=== PATIENT | male | born 1980 | race Caucasian/White ===

== ENCOUNTER 2018-09-06 13:19 | Observation (INO) | payer OTHER, BC ==
--- NOTE | 2018-09-06 14:33 | ER Document Report ---
ED Extremity Problem, Lower - General Chief Complaint: Knee Injury Stated Complaint: FALL/LEFT KNEE PAIN Time Seen by Provider: 09/06/18 14:06 Mode of Arrival: Medic Information source: Patient Notes: Patient is a 38-year-old male who comes emergency room by EMS complaining of left knee pain. Patient states he was coming off of a 3 foot high back back of the house he missed the first step and as he went down he felt his leg on the left side go up behind him heard a loud pop and went to the ground. Patient states he was unable to get up off the ground on his own power. He is unable to bear any weight on the left leg. The knee is not able to do any flexion or extension on its own. When he tries to stand he has no stability in the right leg at the knee joint. He denies any other injuries. TRAVEL OUTSIDE OF THE [place] IN LAST 30 DAYS: No - HPI Patient complains to provider of: Injury, Pain, Swelling Location: Knee Occurred: Just prior to arrival Where: Home Onset/Duration: Sudden, Constant Quality of pain: Sharp, Throbbing, Other - There is no pain while sitting with legs outstretched. Any type of movement pain goes to 3 out of 5 Severity: Moderate Pain Level: 3 Context: Twisted Recent injury: Yes Associated symptoms: Unable to bear weight Exacerbated by: Movement, Walking Relieved by: Elevation, Rest - Related Data Allergies/Adverse Reactions: No Known Allergies Allergy (Unverified 09/06/18 13:22) Past Medical History - General Information source: Patient - Social History Smoking Status: Never Smoker Cigarette use (# per day): No Chew tobacco use (# tins/day): No Smoking Education Provided: No Frequency of alcohol use: Rare Drug Abuse: None Lives with: Family Family History: Reviewed & Not Pertinent Review of Systems - Review of Systems Constitutional: No symptoms reported EENT: No symptoms reported Cardiovascular: No symptoms reported Respiratory: No symptoms reported Gastrointestinal: No symptoms reported Genitourinary: No symptoms reported Male Genitourinary: No symptoms reported Musculoskeletal: Joint pain, Joint swelling, Leg swelling Skin: No symptoms reported Hematologic/Lymphatic: No symptoms reported Neurological/Psychological: No symptoms reported -: Yes All other systems reviewed and negative Physical Exam - Vital signs Vitals: Temp Pulse Resp BP Pulse Ox 98.5 F 77 16 136/87 H 98 09/06/18 13:45 09/06/18 13:45 09/06/18 13:45 09/06/18 13:45 09/06/18 13:45 Interpretation: Hypertensive - Notes Notes: PHYSICAL EXAMINATION: GENERAL: Patient is a well-nourished well-developed 38-year-old male who is in no apparent distress on physical exam. Does appear uncomfortable with any type of movement. HEAD: Atraumatic, normocephalic. EYES: Pupils equal round and reactive to light, extraocular movements intact, sclera anicteric, conjunctiva are normal. NECK: Normal range of motion, supple without lymphadenopathy LUNGS: Breath sounds clear to auscultation bilaterally and equal. No wheezes rales or rhonchi. HEART: Regular rate and rhythm without murmurs Musculoskeletal: Examination of the area of concern is patient's left knee. On examination left knee is swollen in comparison to the right. Patient displays a good popliteal pulse as well as good distal pulses in the dorsalis pedis. Patient has flexion and extension of the ankle and total movement of toes. Patient is unable to extend his leg at all. Palpation of the knee itself feels like the patella is riding high into the thigh. Also moderate amount of effusion in the inferior portion of the cell. Unable to perform anterior drawer secondary to inability to flex the knee secondary to pain and swelling. NEUROLOGICAL: Normal speech, normal gait. Normal sensory, motor exams PSYCH: Normal mood, normal affect. SKIN: Warm, Dry, normal turgor, no rashes or lesions noted. Course - Re-evaluation Re-evalutation: 09/06/18 15:[address] showed ruptured patella tendon no fracture of the patella. I contacted Dr. Lopez who [facility]. I then consulted with the patient and he has elected to just that he wants [facility]. - Vital Signs Vital signs: Temp Pulse Resp BP Pulse Ox 98.5 F 77 16 136/87 H 98 09/06/18 13:45 09/06/18 13:45 09/06/18 13:45 09/06/18 13:45 09/06/18 13:45 Procedures - Immobilization Left Knee Pre-Proc Neuro Vasc Exam: Normal Immobilizer type: Knee immobilizer Performed by: PCT Post-Proc Neuro Vasc Exam: Normal Alignment checked and good: Yes Discharge - Discharge Clinical Impression: Rupture of left patellar tendon Qualifiers: Encounter type: initial encounter Qualified Code(s): S86.812A - Strain of other muscle(s) and tendon(s) at lower leg level, left leg, initial encounter Condition: Stable Disposition: ADMITTED OBSERVATION Admitting Provider: to Dr. Lopez\orthopedics Unit Admitted: Surgical Floor [facility]: [facility] [[facility]] - Follow up as needed
--- NOTE | 2018-09-06 15:21 | RADIOLOGY REPORT (SQ) ---
EXAM DESCRIPTION: CT LT LOWER EXTREMITY WITHOUT COMPLETED DATE/TIME: 09/06/2018 3:01 pm REASON FOR STUDY: ruptured patella tendon left. COMPARISON: None. TECHNIQUE: Axial imaging performed through the left knee with reformatted coronal and sagittal imagi ng windowed for bone and soft tissues. Images saved to PACS. 3D IMAGING: Were 3D images as MIP, SSD, or volume rendering performed at the work station? No. All CT scanners at this facility use dose modulation, iterative reconstruction, and/or weight based d osing when appropriate to reduce radiation dose to as low as reasonably achievable (ALARA). [facility]: Dose Right [facility]: CareDose [facility]: Dose Right [facility]: Teradose 4D [facility]: [employer] Technologies LIMITATIONS: None. RADIATION DOSE: CT Rad equipment meets quality standard of care and radiation dose reduction techniq ues were employed. CTDIvol: 4.1 mGy. DLP: 140 mGy-cm. mGy. FINDINGS: SOFT TISSUES: Disruption of the normal architecture of patellar tendon consistent with cli nical history. BONES: Patella Aishwarya. No fracture. MINERALIZATION: Normal. OTHER: No other significant finding. IMPRESSION: Ruptured patellar tendon. No fracture. TECHNICAL DOCUMENTATION: JOB ID: [id number] Quality ID # [id number]: Final reports with documentation of one or more dose reduction techniques (e.g., Au tomated exposure control, adjustment of the mA and/or kV according to patient size, use of iterative reconstruction technique) 2010 [employer]- All Rights Reserved Reading location - IP[facility]workstation name: [facility]
[2018-09-06] MEDS ORDERED: KETOROLAC TROMETHAMINE INJ/PF 30 MG/1 ML SDV IV ONE (16:00)
[2018-09-07 05:19] LABS: ABSOLUTE BASOPHILS # (AUTO) 0.1 10^3/uL (0.0-0.2); ABSOLUTE EOSINOPHILS # (AUTO) 0.1 10^3/uL (0.0-0.6); ABSOLUTE LYMPHOCYTES (AUTO) 2.5 10^3/uL (0.5-4.7); ABSOLUTE MONOCYTES (AUTO) 0.9 10^3/uL (0.1-1.4); ABSOLUTE NEUT (AUTO) 6.6 10^3/uL (1.7-8.2); BASOPHILS % (AUTO) 0.7 % (0-2); EOSINOPHILS % (AUTO) 1.1 % (0-6); HEMATOCRIT 40.8 % (37.9-51.0); HEMOGLOBIN 14.1 g/dL (13.5-17.0); LYMPHOCYTES % (AUTO) 25.1 % (13-45); MEAN CORPUSCULAR HEMOGLOBIN 30.5 pg (27.0-33.4); MEAN CORPUSCULAR HGB CONC 34.7 g/dL (32.0-36.0); MEAN CORPUSCULAR VOLUME 88 fl (80-97); MONOCYTES % (AUTO) 8.6 % (3-13); PLATELET COUNT 241 10^3/uL (150-450); RED BLOOD COUNT 4.63 10^6/uL (4.35-5.55); SEGMENTED NEUTROPHILS % (AUTO) 64.5 % (42-78); TOTAL CELLS COUNTED % (AUTO) 100 %; WHITE BLOOD COUNT 10.2 10^3/uL (4.0-10.5)
[2018-09-07 05:26] LABS: INTERNATIONAL RATION (INR) 0.97; PROTHROMBIN TIME 13.4 SEC (11.4-15.4)
[2018-09-07 05:45] LABS: ANION GAP 9 (5-19); BLOOD UREA NITROGEN 13 mg/dL (7-20); CALCIUM 9.2 mg/dL (8.4-10.2); CARBON DIOXIDE 27 mmol/L (22-30); CHLORIDE 105 mmol/L (98-107); GLUCOSE 104 mg/dL (75-110); POTASSIUM 4.7 mmol/L (3.6-5.0)
[2018-09-07] MEDS: OXYCODONE HCL IR 5 MG TABLET PO PRN ×2 (06:16→18:13)
--- NOTE | 2018-09-07 07:20 | PDOC H&P ---
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 He was evaluated in the emergency room her left patellar tendon disruption was identified. He is admitted to orthopedic service for management of the patellar tendon disruption. Past Medical History Medical History: None Cardiac Medical History: Reports: None Past Surgical History Past Surgical History: Reports: None Social History Information Source: Patient, [facility] Records Lives with: Family Smoking Status: Never Smoker Frequency of Alcohol Use: Heavy Hx Recreational Drug Use: No Hx Prescription Drug Abuse: No Family History Family History: Reviewed & Not Pertinent Parental Family History Reviewed: No Children Family History Reviewed: No Sibling(s) Family History Reviewed.: No Medication/Allergy Home Medications: No Home Medications 09/06/18 Allergies/Adverse Reactions: No Known Allergies Allergy (Unverified 09/06/18 16:18) Review of Systems All systems: as per [facility] Physical Exam Vital Signs: Temp Pulse Resp BP Pulse Ox 36.7 C 61 17 137/68 H 100 09/06/18 23:03 09/06/18 23:03 09/06/18 23:03 09/06/18 23:03 09/06/18 23:03 Intake & Output 09/06/18 09/07/18 09/08/18 06:59 06:59 06:59 Intake Total 1444 Output Total 350 Balance 1094 Weight 115.2 kg Physical Exam: The patient is an overweight middle-aged white male lying in a hospital bed in minimal discomfort. Left lower extremity is immobilized in a knee immobilizer. This is removed. There is swelling and tenderness in the region of the infrapatellar aspect of the left knee. Extensor mechanism is disrupted. Distal neurovascular examination is intact. There is no skin abnormalities. General appearance: PRESENT: no acute distress, mild distress Head exam: PRESENT: normocephalic Respiratory exam: PRESENT: unlabored Cardiovascular exam: PRESENT: RRR Pulses: PRESENT: +1 pedal pulses bilateral Vascular exam: PRESENT: normal capillary refill GI/Abdominal exam: PRESENT: soft Rectal exam: PRESENT: deferred Extremities exam: PRESENT: other - Swelling and tenderness in the left infrapatellar region. Extensor mechanism is disrupted. Distal neurovascular examination is intact. No skin abnormalities. Neurological exam: PRESENT: alert, awake, oriented to person, oriented to place , oriented to time, oriented to situation. ABSENT: motor sensory deficit Psychiatric exam: PRESENT: appropriate affect, normal mood. ABSENT: homicidal ideation, suicidal ideation Skin exam: PRESENT: dry, intact, warm. ABSENT: cyanosis, rash Results Laboratory Results: 09/07/18 05:02 09/07/18 05:02 09/07/18 09/07/18 05:02 05:02 WBC 10.2 RBC 4.63 Hgb 14.1 Hct 40.8 MCV 88 MCH 30.5 MCHC 34.7 RDW 13.0 Plt Count 241 Seg Neutrophils % 64.5 Lymphocytes % 25.1 Monocytes % 8.6 Eosinophils % 1.1 Basophils % 0.7 Absolute Neutrophils 6.6 Absolute Lymphocytes 2.5 Absolute Monocytes 0.9 Absolute Eosinophils 0.1 Absolute Basophils 0.1 Sodium 141.0 Potassium 4.7 Chloride 105 Carbon Dioxide 27 Anion Gap 9 BUN 13 Creatinine 0.91 Est GFR ( Amer) > 60 Est GFR (Non-Af Amer) > 60 Glucose 104 Calcium 9.2 Impressions: Lower Extremity CT 09/06/18 14:16 IMPRESSION: Ruptured patellar tendon. No fracture. Status: Imported from PACS Assessment & Plan - Diagnosis (1) Rupture of left patellar tendon Qualifiers: Encounter type: initial encounter Qualified Code(s): S86.812A - Strain of other muscle(s) and tendon(s) at lower leg level, left leg, initial encounter Is this a current diagnosis for this admission?: Yes Plan: 38-year-old white male with an acute disruption of the left patella tendon. Patient be best served with a surgical repair. We will proceed with this pending or availability. - Time Time Spent: 50 to 70 Minutes Anticipated discharge: Home Within: within 24 hours
[2018-09-07] MEDS ORDERED: CEFAZOLIN 2 GM/D5W RTU 2 GM/50 ML RTUPB IV PRN (08:25)
[2018-09-07] MEDS ORDERED: CEFAZOLIN INJ 1 GM VIAL ONE (11:15)
[2018-09-07] MEDS ORDERED: DEXAMETHASONE SOD PHOSPHATE INJ 4 MG/1 ML VIAL ONE (12:03)
[2018-09-07] MEDS ORDERED: FENTANYL CITRATE INJ/PF 100 MCG/2 ML AMPUL ONE (12:03)
[2018-09-07] MEDS ORDERED: LIDOCAINE 2% INJ-PF (20 MG/ML) 10 ML AMPUL ONE (12:03)
[2018-09-07] MEDS ORDERED: MIDAZOLAM 2 MG/2 ML INJ ONE (12:03)
[2018-09-07] MEDS ORDERED: PROPOFOL INJ 200 MG/20 ML VIAL IV ONE (12:03)
[2018-09-07] MEDS ORDERED: ACETAMINOPHEN 1,000 MG/100 ML RTUPB IV ONE (12:03)
[2018-09-07] MEDS ORDERED: ONDANSETRON HCL INJ/PF 4 MG/2 ML SDV ONE (12:03)
[2018-09-07] MEDS ORDERED: LIDOCAINE 0.5% INJ-PF (5 MG/ML) 50 ML SDV ONE (12:09)
[2018-09-07] MEDS ORDERED: BUPIVACAINE HCL 0.25% /EPINEPHRINE INJ/PF 30 ML SDV ONE (12:09)
[2018-09-07] MEDS ORDERED: MEPERIDINE HCL/PF INJ 25 MG/1 ML DISP.SYRIN IV PRN (12:40)
[2018-09-07] MEDS ORDERED: FENTANYL CITRATE INJ/PF 100 MCG/2 ML AMPUL IV PRN ×3 (12:40)
[2018-09-07] MEDS ORDERED: MORPHINE SULFATE 10 MG/ML INJ IV PRN (12:40)
[2018-09-07] MEDS ORDERED: ONDANSETRON HCL INJ/PF 4 MG/2 ML SDV IV PRN (12:40)
[2018-09-07] MEDS ORDERED: PROMETHAZINE HCL INJ 25 MG/1 ML VIAL IV PRN ×2 (12:40)
[2018-09-07] MEDS ORDERED: DIPHENHYDRAMINE HCL 50 MG/ML VIAL IV PRN (12:40)
--- NOTE | 2018-09-07 13:05 | Operative Report ---
Operative Report DATE OF SURGERY: 09/07/18 PREOPERATIVE DIAGNOSIS: Left patellar tendon disruption OPERATION: Repair left patellar tendon SURGEON: CONNER FLORES ANESTHESIA: GA ESTIMATED BLOOD LOSS: 50 PROCEDURE: With the patient supine and operative table left lower extremities prepped and draped in sterile fashion. The limb is elevated for exsanguination tourniquet inflated 280 torr. A midline incision is made beginning at the proximal pole of the patella and extending down to the tibial tubercle. Sharp dissection was carried incision through the superficial retinaculum exposing the underlying patellar tendon disruption. Two 4.5 mm Arthrex suture anchors were placed into the inferior pole of the patella. The FiberWire sutures and emanate from the anchors were used to repair the patellar tendon as follows. The 2 central sutures were used to repair the patellar tendon proper. The 2 medial and lateral sutures were then used to repair the retinacular tear medial and lateral. Lastly a #5 FiberWire was placed through bone hole at the level of the tibial tubercle and then proximally in the soft tissue at the proximal pole of the patella to serve as a overall constraint of distraction across the patellar tendon. The wound is irrigated. Tourniquet deflated. Hemostasis obtained with electrocautery. Wound was then closed in layers interrupted Vicryl followed by nylon. A sterile compressive dressing was applied followed by knee immobilizer and the patient's return to PACU in satisfactory condition.
[2018-09-07] MEDS ORDERED: ONDANSETRON 4 MG TAB.RAPDIS SL PRN (13:21)
[2018-09-07] MEDS ORDERED: RINGERS SOLUTION,LACTATED 1,000 ML IV PRN ×2 (13:30)
[2018-09-07] MEDS: FENTANYL CITRATE INJ/PF 100 MCG/2 ML AMPUL ONE ×3 (13:32→13:49)
[2018-09-07] MEDS ORDERED: MORPHINE SULFATE 10 MG/ML INJ ONE (14:09)
[2018-09-07] MEDS ORDERED: KETOROLAC TROMETHAMINE 60 MG/2 ML SDV ONE (14:36)
[2018-09-07] MEDS ORDERED: SUCCINYLCHOLINE CHLORIDE INJ 200 MG/10 ML VIAL ONE (14:36)
[2018-09-07] MEDS: MORPHINE SULFATE 10 MG/ML INJ IV PRN ×3 (16:55→23:15)
[2018-09-07] MEDS: CEFAZOLIN 2 GM/D5W RTU 2 GM/50 ML RTUPB IV SCH (18:15)
[2018-09-08] MEDS: OXYCODONE HCL IR 5 MG TABLET PO PRN ×2 (00:19→06:31)
[2018-09-08] MEDS: CEFAZOLIN 2 GM/D5W RTU 2 GM/50 ML RTUPB IV SCH (01:49)
[2018-09-08] MEDS: ACETAMINOPHEN 325 MG TABLET PO PRN ×2 (04:02→11:28)
[2018-09-08 05:51] LABS: HEMATOCRIT 38.4 % (37.9-51.0); HEMOGLOBIN 13.2 g/dL (13.5-17.0); MEAN CORPUSCULAR HGB CONC 34.3 g/dL (32.0-36.0); MEAN CORPUSCULAR VOLUME 88 fl (80-97); PLATELET COUNT 252 10^3/uL (150-450); RED BLOOD COUNT 4.39 10^6/uL (4.35-5.55); RED CELL DISTRIBUTION WIDTH 13.1 % (11.5-14.0); WHITE BLOOD COUNT 13.6 10^3/uL (4.0-10.5)
[2018-09-08 06:13] LABS: ANION GAP 8 (5-19); BLOOD UREA NITROGEN 10 mg/dL (7-20); CALCIUM 9.2 mg/dL (8.4-10.2); CARBON DIOXIDE 24 mmol/L (22-30); CHLORIDE 104 mmol/L (98-107); GLUCOSE 114 mg/dL (75-110); POTASSIUM 4.5 mmol/L (3.6-5.0)
--- NOTE | 2018-09-08 07:24 | PDOC DISCHARGE SUMMARY ---
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 Evaluation emergency room demonstrated disruption of the patellar tendon. Patient is admitted to the orthopedic service for management of the patella tendon disruption. Hospital Course Hospital Course: Patient was taken to the operating room and underwent a repair of the left patella tendon under general anesthetic. He is returned to floor in satisfactory condition. Pain is reasonably well controlled with oral analgesics. Patient is ablating with crutches and a knee immobilizer. Physical Exam Vital Signs: Temp Pulse Resp BP Pulse Ox 37.1 C 91 17 145/79 H 97 09/07/18 23:02 09/07/18 23:02 09/07/18 23:02 09/07/18 23:02 09/07/18 23:02 Intake & Output 09/07/18 09/08/18 09/09/18 06:59 06:59 06:59 Intake Total 1444 1900 Output Total 350 400 Balance 1094 1500 Weight 115.2 kg 113.5 kg General appearance: PRESENT: no acute distress, mild distress, well-developed Head exam: PRESENT: normocephalic Respiratory exam: PRESENT: unlabored Cardiovascular exam: PRESENT: RRR Pulses: PRESENT: +1 pedal pulses bilateral Vascular exam: PRESENT: normal capillary refill GI/Abdominal exam: PRESENT: soft Rectal exam: PRESENT: deferred Extremities exam: PRESENT: other - Left lower extremity clean dry and intact. Knee immobilizers in place. Neurological exam: PRESENT: alert, awake, oriented to person, oriented to place , oriented to time, oriented to situation. ABSENT: motor sensory deficit Psychiatric exam: PRESENT: appropriate affect, normal mood. ABSENT: homicidal ideation, suicidal ideation Skin exam: PRESENT: dry, intact, warm. ABSENT: cyanosis, rash Results Laboratory Results: 09/08/18 05:24 09/08/18 05:24 09/08/18 09/08/18 05:24 05:24 WBC 13.6 H RBC 4.39 Hgb 13.2 L Hct 38.4 MCV 88 MCH 30.0 MCHC 34.3 RDW 13.1 Plt Count 252 Sodium 136.0 L Potassium 4.5 Chloride 104 Carbon Dioxide 24 Anion Gap 8 BUN 10 Creatinine 0.72 Est GFR ( Amer) > 60 Est GFR (Non-Af Amer) > 60 Glucose 114 H Calcium 9.2 Impressions: Lower Extremity CT 09/06/18 14:16 IMPRESSION: Ruptured patellar tendon. No fracture. Status: Imported from PACS Qualifiers - * PATIENT BEING DISCHARGED WITH ANY OF THE FOLLOWING DIAGNOSIS: No VTE patient discharged on overlapping Therapy?: No Reason(s) for not prescribing Overlap Therapy:: Not indicated Plan Discharge Plan: Patient be discharged home without supportive therapy because his son needed. He will maintain a crutch ambulation in the knee immobilizer. Return to see Dr. Jessica Escobar Irving for surgery in 2 weeks for staple removal.
[2018-09-08 08:35] VITALS: BP 151/64
== END 2018-09-08 11:40 | disposition home or self-care (01) ==
LOC: ER 13:19 → EH 15:49 → 4N 17:11
PROVIDERS: ADMIT Orthopaedic Surgery; ATTEND Orthopaedic Surgery
PROC: 0LQR0ZZ Repair Left Knee Tendon, Open Approach (ICD-10-PCS; principal; 2018-09-07 12:00)
DX: S76.112A Strain of left quadriceps muscle, fascia and tendon, initial encounter (principal); W01.0XXA Fall on same level from slipping, tripping and stumbling without subsequent striking against object, initial encounter; Y93.H9 Activity, other involving exterior property and land maintenance, building and construction; Y92.008 Other place in unspecified non-institutional (private) residence as the place of occurrence of the external cause; E66.3 Overweight
CPT/HCPCS: 99285; 96374; 36415 ×2; 85025; 85027; 85610; 85730; 80048 ×2; 73700; 97116; 97163; 27599; L1830; C1713; J2250; J3490 ×3; J0690 ×3; J1100; J1885 ×2; J3010; J2270; J0330; J2405; J7120; J2704; J0131; 01320